=== PATIENT | female | born 1960 | race Asian ===

== ENCOUNTER → 2025-06-10 10:13 | Outpatient (CLI) | payer MEDICARE, OTHER, SELFPAY ==
--- NOTE | 2025-06-10 10:24 | DI.RAD.S_ITS ---
PROCEDURE: XR FOOT RT MIN 3V INDICATIONS: Pain in right foot TECHNIQUE: 3 views of the foot were acquired. COMPARISON: None. FINDINGS: Bones: No fractures or dislocations. No suspicious bony lesions. Pronounced plantar and posterior calcaneal enthesophytes. Mild diffuse interphalangeal and 1st MTP joint degeneration. Soft tissues: No tibiotalar joint effusion. Achilles tendon appears normal. IMPRESSION: Mild degenerative changes. Pronounced calcaneal enthesophytes. Dictated by: Martinez Muñiz M.D. on 06/12/2025 at 13:54 Approved by: Martinez Muñiz M.D. on 06/12/2025 at 13:55
== END ==
LOC: RAD 10:19
PROVIDERS: PCP Family Medicine; Referring Provider Family Medicine; Visit Provider Family Medicine
DX: M77.31 Calcaneal spur, right foot (principal); M79.671 Pain in right foot; G89.29 Other chronic pain
CPT/HCPCS: 73630

== ENCOUNTER → 2025-07-19 17:14 | Outpatient (CLI) | payer MEDICARE, OTHER, SELFPAY ==
--- NOTE | 2025-07-19 17:15 | DI.MG.S_ITS ---
MM screening mammo BI: 07/19/2025. BI-RADS: 1 CLINICAL: 64-year old female for bilateral screening mammogram. Tyrer-Cuzick lifetime risk of 4.0%. No personal or first-degree family history of breast cancer. PRIOR EXAMS: 02/12/2024, 01/22/2023, 11/24/2021. MAMMOGRAPHY TECHNIQUE: 2D and 3D (tomosynthesis) digital mammographic views obtained, with additional images as needed for full coverage. Current study was also evaluated with a Computer Aided Detection (CAD) system. DENSITY B. There are scattered areas of fibroglandular density. MAMMOGRAPHY FINDINGS Bilateral: No suspicious mass, asymmetry, microcalcification, or other abnormality seen. IMPRESSION: * No evidence of malignancy. RECOMMENDATIONS Bilateral * Annual screening mammography. OVERALL ASSESSMENT CATEGORY BI-RADS-1: Negative. The [employer] recommends annual screening mammography beginning at age 40 for women with average risk of breast cancer. ELECTRONICALLY SIGNED: Valerio Hair M.D. on 07/21/2025 at 01:16:11 PM PT Interpreting Station ID: [id number]
== END ==
LOC: MAMMO 17:15
PROVIDERS: PCP Family Medicine; Referring Provider Family Medicine; Visit Provider Family Medicine
DX: Z12.31 Encounter for screening mammogram for malignant neoplasm of breast (principal)
CPT/HCPCS: 77063; 77067